=== PATIENT | male | born 1985 | race Caucasian/White ===

== ENCOUNTER 2020-04-25 08:06 | Emergency (ER) | payer OTHER ==
[~2020-04-25] VITALS: Ht 172.7 cm; Wt 72.7 kg
[2020-04-25 10:01] VITALS: BP 138/86
== END 2020-04-25 10:18 | disposition home or self-care (01) ==
LOC: EMS 08:11
DX: S13.4XXA Sprain of ligaments of cervical spine, initial encounter (principal); M25.511 Pain in right shoulder; V59.9XXA Occupant (driver) (passenger) of pick-up truck or van injured in unspecified traffic accident, initial encounter; Y93.89 Activity, other specified; Y92.89 Other specified places as the place of occurrence of the external cause; Y99.8 Other external cause status